=== PATIENT | male | born 1975 | race Caucasian/White ===

== ENCOUNTER 2016-11-23 01:57 | Inpatient (IN) | payer MEDICAID, OTHER ==
[~2016-11-23] VITALS: Ht 180.3 cm; Wt 70.7 kg
[~2016-11-23 01:57] MED LIST: no medications
[2016-11-23] MEDS ORDERED: ONDANSETRON 2MG/ML, 2ML IVPush ONE (02:30)
[2016-11-23] MEDS ORDERED: SODIUM CHLORIDE FLUSH 10ML SYR IVF ONE (02:30)
[2016-11-23] MEDS ORDERED: SODIUM CHLORIDE 0.9% 1,000ML IVBOLUS ONE ×2 (02:30→04:30)
[2016-11-23] MEDS ORDERED: HYDROmorphone 1 MG/ML, 1ML ONE ×2 (02:30→03:59)
[2016-11-23] MEDS ORDERED: HYDROmorphone 1 MG/ML, 1ML IVPush PRN (02:30)
[2016-11-23] MEDS ORDERED: ONDANSETRON 2MG/ML, 2ML ONE (02:30)
[2016-11-23 02:36] LABS: HEMATOCRIT 50.5 % (39.2-51.8); HEMOGLOBIN 16.8 g/dL (13.7-18.0); WHITE BLOOD COUNT 13.5 x10^3/uL (3.4-10)
[2016-11-23 02:49] LABS: ASPARTATE AMINO TRANSFERASE 33 U/L (15-37); BLOOD UREA NITROGEN 20 mg/dL (7-18)
[2016-11-23] MEDS ORDERED: OMNIPAQUE 350 MG/ML, 100ML BOTTLE ONE (03:00)
[2016-11-23] MEDS ORDERED: HYDROmorphone 1 MG/ML, 1ML IV ONE (04:00)
[2016-11-23] MEDS ORDERED: NS + 20MEQ KCL 1,000 ML IV SCH (04:43)
[2016-11-23] MEDS ORDERED: ACETAMINOPHEN 325 MG TABLET PO PRN (05:00)
[2016-11-23] MEDS ORDERED: PROMETHAZINE 25 MG/ML, 1ML IM PRN (05:00)
[2016-11-23] MEDS ORDERED: OXYcodone IR 5MG TABLET PO PRN (05:00)
[2016-11-23] MEDS ORDERED: POLYETHYLENE GLYCOL 17 GM PACKET PO PRN (05:00)
[2016-11-23] MEDS ORDERED: DOCUSATE 100 MG CAPSULE PO PRN (05:00)
[2016-11-23] MEDS ORDERED: ONDANSETRON 2MG/ML, 2ML IVPush PRN (05:00)
[2016-11-23] MEDS: HYDROmorphone 2 MG/ML, 1ML IVPush PRN (14:49)
[2016-11-23 15:23] VITALS: BP 140/93
[2016-11-23] MEDS: NS + 20MEQ KCL 1,000 ML IV SCH (17:32)
[2016-11-23 20:43] VITALS: BP 145/91
[2016-11-24] MEDS: HYDROmorphone 2 MG/ML, 1ML IVPush PRN ×3 (00:05→10:24)
[2016-11-24 02:00] VITALS: BP 135/80
[2016-11-24] MEDS: NS + 20MEQ KCL 1,000 ML IV SCH ×2 (02:05→15:37)
[2016-11-24 05:02] LABS: BLOOD UREA NITROGEN 15 mg/dL (7-18)
[2016-11-24 08:27] LABS: HEMATOCRIT 47.2 % (39.2-51.8); HEMOGLOBIN 15.8 g/dL (13.7-18.0); WHITE BLOOD COUNT 12.4 x10^3/uL (3.4-10)
[2016-11-24 09:00] VITALS: BP 130/88
[2016-11-24] MEDS ORDERED: POLYETHYLENE GLYCOL 17 GM PACKET PO PRN (15:00)
[2016-11-24] MEDS ORDERED: ACETAMINOPHEN 325 MG TABLET PO PRN (15:00)
[2016-11-24] MEDS ORDERED: DOCUSATE 100 MG CAPSULE PO PRN (15:00)
[2016-11-24] MEDS ORDERED: PROMETHAZINE 25 MG/ML, 1ML IM PRN (15:00)
[2016-11-24] MEDS ORDERED: NICOTINE 7 MG/24 HR PATCH.TD24 TD SCH (18:00)
[2016-11-24 19:42] VITALS: BP 133/87
== END 2016-11-24 22:00 | disposition left against medical advice (07) | DRG 388 ==
LOC: ED 04:02 → EDIP 04:12 → SUATTDRO 04:32 → 4NOR 07:41
PROVIDERS: ADMIT Family Medicine; ATTEND Family Medicine
DX: K56.60 Unspecified intestinal obstruction (principal); N17.0 Acute kidney failure with tubular necrosis; E86.0 Dehydration; F12.90 Cannabis use, unspecified, uncomplicated; Z90.49 Acquired absence of other specified parts of digestive tract; Z88.5 Allergy status to narcotic agent; Z72.0 Tobacco use
CPT/HCPCS: 36415; 74000; 74177; 80048; 80053; 81003; 83690; 85025; 93005; 96361; 96374; 96375; J1170; J2405; J3480; Q9967; J7030